=== PATIENT | female | born 1975 | race Caucasian/White ===

== ENCOUNTER 2017-11-09 19:03 | Emergency (ER) | payer SELFPAY ==
[2017-11-09 19:07] VITALS: BP 156/79; PULSE 109; RESP 20; TEMP 98.3; O2SAT 94
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
[2017-11-09] MEDS ORDERED: TETANUS/DIPHTHERIA TOXOID ADULT 0.5 ML VIAL IM ONE (19:30)
[2017-11-09] MEDS ORDERED: AMOXICILLIN/CLAVULANATE K 875 MG TAB PO ONE (19:30)
[2017-11-09] MEDS ORDERED: AUGM875T3 PO (19:30)
[2017-11-09] MEDS ORDERED: ACETAMINOPHEN/HYDROcodone 325 MG/5 MG TAB PO ONE (19:30)
[2017-11-09] MEDS ORDERED: NORC5TAB PO (19:33)
[2017-11-09 19:39] VITALS: BP 145/85
== END 2017-11-09 19:45 | disposition home or self-care (01) ==
LOC: PHED 19:03
DX: S03.2XXA Dislocation of tooth, initial encounter (principal); Z23 Encounter for immunization; W51.XXXA Accidental striking against or bumped into by another person, initial encounter
CPT/HCPCS: 90471; 90714